=== PATIENT | female | born 1980 | race Caucasian/White ===

== ENCOUNTER 2018-02-05 14:56 | Emergency (ER) | payer SELFPAY ==
[2018-02-05] MEDS ORDERED: HYDROCODONE/APAP 7.5/325 MG TAB ONE (17:10)
--- NOTE | 2018-02-05 18:22 | ER ---
Nurse's Notes [facility] Name: Marlen Rosas Age: 37 yrs Sex: Female : 1980 Arrival Date: 02/05/2018 Time: 14:58 Bed 15 Private MD: None, None Diagnosis: Other fracture of right patella;Sprain of unspecified site of right knee-possible ligamentous injury Presentation: 02/05 15:32 Presenting complaint: Patient states: " I missed the last step on our stairs, fell and ph landed on my knee. I've been icing it and taking prednisone and Motrin but it just keeps swelling and it is really hurting." Swelling noted to R knee. Transition of care: patient was not received from another setting of care. Onset of symptoms was February 05, 2018. Risk Assessment: Do you want to hurt yourself or someone else? Patient reports no desire to harm self or others. Initial Sepsis Screen: Does the patient meet any 2 criteria? No. Patient's initial sepsis screen is negative. Does the patient have a suspected source of infection? No. Patient's initial sepsis screen is negative. Care prior to arrival: None. 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 - Social history:: Smoking status: Patient/guardian denies using tobacco. - Ebola Screening: : No symptoms or risks identified at this time. Screenin:01 Abuse screen: Denies threats or abuse. Nutritional screening: No deficits noted. mb3 Tuberculosis screening: No symptoms or risk factors identified. Fall Risk None identified. Assessment: 19:00 General: Appears in no apparent distress. comfortable, Behavior is calm, cooperative, mb3 appropriate for age. Pain: Complains of pain in right knee. Neuro: No deficits noted. Cardiovascular: No deficits noted. Respiratory: No deficits noted. GI: No deficits noted. No signs and/or symptoms were reported involving the gastrointestinal system. Musculoskeletal: Capillary refill < 3 seconds, Swelling present in right knee Reports pain in right knee. Vital Signs: 15:37 BP 108 / 75; Pulse 90; Resp 18; Temp 98.6; Pulse Ox 98% on R/A; Weight 104.33 kg; ph Height 5 ft. 4 in. (162.56 cm); Pain 7/10; 19:02 BP 130 / 83; Pulse 73; Resp 16; Pulse Ox 98% on R/A; mb3 15:37 Body Mass Index 39.48 (104.33 kg, 162.56 cm) ph ED Course: 14:58 Patient arrived in ED. sb2 14:59 None, None is Private Physician. sb2 15:36 Triage completed. ph 15:37 Arm band placed on Patient placed in waiting room, Patient notified of wait time. X-ray ph ordered. Affected limb iced. 16:56 Preet Grant NP is PHCP. pm1 16:56 Nitin Meehan MD is Attending Physician. pm1 16:57 Pedrito Rodas, DORENE is Primary Nurse. mb3 17:52 Knee Right 3 View XRAY In Process Unspecified. EDMS 18:07 X-ray completed. Portable x-ray completed in exam room. Patient tolerated procedure bb2 well. 18:20 Tobin Choudhary MD is Referral Physician. pm1 19:02 No provider procedures requiring assistance completed. Patient did not have IV access mb3 during this emergency room visit. Crutch training done. Knee immobilizer applied on. 19:02 Knee immobilizer applied on right knee. mb3 Administered Medications: 17:08 Drug: [place] (7.5 mg-325 mg) 1 tabs Route: PO; mb3 18:47 Follow up: Response: No adverse reaction mb3 18:47 Drug: TORadol 60 mg Route: IM; Site: right gluteus; mb3 18:48 Follow up: Response: No adverse reaction mb3 Outcome: 18:21 Discharge ordered by . pm1 19:03 Patient left the ED. mb3 Signatures: Dispatcher [employer] Brittni Perez RN RN Preet Grant NP WASHER AND CRUSHER TENDER pm1 Zakia Oakley bb2 Jenelle Pena sb2 Pedrito Rodas, DORENE RN mb3
--- NOTE | 2018-02-05 18:22 | EDPHYS ---
Physician Documentation [facility] Name: Marlen Rosas Age: 37 yrs Sex: Female : 1980 Arrival Date: 02/05/2018 Time: 14:58 Bed 15 Private MD: None, None ED Physician Nitin Meehan HPI: 02/05 17:45 This 37 yrs old Female presents to ER via Wheelchair with complaints of Right pm1 Knee Injury. 17:45 The patient presents with pain, swelling, tenderness. The complaints affect the right pm1 knee. Context: The problem was sustained at home, resulted from missed last step of bottom step and landed on her right knee, Problem is a result from a previous injury: No. Onset: The symptoms/episode began/occurred just prior to arrival. Modifying factors: The symptoms are alleviated by nothing. the symptoms are aggravated by weight bearing, bending knee. Associated signs and symptoms: Pertinent positives: swelling, Pertinent negatives calf tenderness, numbness, tingling. Treatment prior to arrival includes: no previous treatment. The patient has not experienced similar symptoms in the past. No head injury, headache, neck pain, or LOC. Patient walking down her stairs and missed the last step with her right foot. Feel and landed on her right knee. 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 - Social history:: Smoking status: Patient/guardian denies using tobacco. - Ebola Screening: : No symptoms or risks identified at this time. ROS: 17:45 Constitutional: Negative for fever, chills, and weight loss, Eyes: Negative for injury, pm1 pain, redness, and discharge, ENT: Negative for injury, pain, and discharge, Neck: Negative for injury, pain, and swelling, Cardiovascular: Negative for chest pain, palpitations, and edema, Respiratory: Negative for shortness of breath, cough, wheezing, and pleuritic chest pain, Abdomen/GI: Negative for abdominal pain, nausea, vomiting, diarrhea, and constipation, Back: Negative for injury and pain, : Negative for injury, bleeding, discharge, and swelling. 17:45 Skin: Negative for injury, rash, and discoloration, Neuro: Negative for headache, weakness, numbness, tingling, and seizure. 17:45 MS/extremity: Positive for pain, of the right knee, Negative for decreased range of motion, deformity. Exam: 17:45 Constitutional: This is a well developed, well nourished patient who is awake, alert, pm1 and in no acute distress. Head/Face: Normocephalic, atraumatic. Neck: Trachea midline, no thyromegaly or masses palpated, and no cervical lymphadenopathy. Supple, full range of motion without nuchal rigidity, or vertebral point tenderness. No Meningismus. Chest/axilla: Normal chest wall appearance and motion. Nontender with no deformity. No lesions are appreciated. Cardiovascular: Regular rate and rhythm with a normal S1 and S2. No gallops, murmurs, or rubs. Normal PMI, no JVD. No pulse deficits. Respiratory: Lungs have equal breath sounds bilaterally, clear to auscultation and percussion. No rales, rhonchi or wheezes noted. No increased work of breathing, no retractions or nasal flaring. Abdomen/GI: Soft, non-tender, with normal bowel sounds. No distension or tympany. No guarding or rebound. No evidence of tenderness throughout. Back: No spinal tenderness. No costovertebral tenderness. Full range of motion. Skin: Warm, dry with normal turgor. Normal color with no rashes, no lesions, and no evidence of cellulitis. 17:45 Musculoskeletal/extremity: Extremities: grossly normal except: noted in the posterior aspect of right knee and lateral and medial aspect of right knee just below patella: swelling, tenderness, ROM: full active range of motion, in the , full passive range of motion, in the right knee, Circulation is intact in all extremities. 17:45 Neuro: Orientation: is normal, Motor: is normal, moves all fours, Sensation: Vital Signs: 15:37 BP 108 / 75; Pulse 90; Resp 18; Temp 98.6; Pulse Ox 98% on R/A; Weight 104.33 kg; ph Height 5 ft. 4 in. (162.56 cm); Pain 7/10; 19:02 BP 130 / 83; Pulse 73; Resp 16; Pulse Ox 98% on R/A; mb3 15:37 Body Mass Index 39.48 (104.33 kg, 162.56 cm) ph MDM: 16:57 Patient medically screened. pm1 17:52 Data reviewed: vital signs. Data interpreted: Pulse oximetry: on room air is 98 %. pm1 Interpretation: normal. 18:19 Counseling: I had a detailed discussion with the patient and/or guardian regarding: the pm1 historical points, exam findings, and any diagnostic results supporting the discharge/admit diagnosis, radiology results, the need for outpatient follow up, to return to the emergency department if symptoms worsen or persist or if there are any questions or concerns that arise at home. 02/05 15:38 Order name: Knee Right 3 View XRAY; Complete Time: 18:25 ph 02/05 18:07 Order name: Knee Immobilizer; Complete Time: 18:48 pm1 02/05 18:07 Order name: Crutches; Complete Time: 18:48 pm1 Administered Medications: 17:08 Drug: [place] (7.5 mg-325 mg) 1 tabs Route: PO; mb3 18:47 Follow up: Response: No adverse reaction mb3 18:47 Drug: TORadol 60 mg Route: IM; Site: right gluteus; mb3 18:48 Follow up: Response: No adverse reaction mb3 Disposition: 02/06 07:03 Co-signature as Attending Physician, Nitin Meehan MD. rn Disposition: 02/05/18 18:21 Discharged to Home. Impression: Other fracture of right patella, Sprain of unspecified site of right knee - possible ligamentous injury. - Condition is Stable. - Discharge Instructions: Crutch Use, Knee Immobilizer, Knee Sprain, Knee Fracture, Adult. - Prescriptions for Tylenol- Codeine #3 300-30 mg Oral Tablet - take 2 tablets by ORAL route every 6 hours As needed; 20 tablet. - Medication Reconciliation Form, Thank You Letter, Prescription Opioid Use form. - Follow up: Emergency Department; When: As needed; Reason: Worsening of condition. Follow up: Tobin Choudhary MD; When: 2 - 3 days; Reason: Recheck today's complaints, Continuance of care, Re-evaluation by your physician. - Problem is new. - Symptoms have improved. Signatures: Dispatcher [employer] EDMS Nitin Meehan MD MD rn Hall, Patricia RN RN ph Preet rGant, HOBBIES AND CRAFTS SALES REPRESENTATIVE HOBBIES AND CRAFTS SALES REPRESENTATIVE pm1 Pedrito Rodas RN RN mb3 Corrections: (The following items were deleted from the chart) 02/05 18:30 18:21 02/05/2018 18:21 Discharged to Home. Impression: Pain in right knee - possible pm1 ligamentous injury; Sprain of unspecified site of right knee. Condition is Stable. Forms are Medication Reconciliation Form, Thank You Letter, Antibiotic Education, Prescription Opioid Use. Follow up: Emergency Department; When: As needed; Reason: Worsening of condition. Follow up: Tobin Choudhary; When: 2 - 3 days; Reason: Recheck today's complaints, Continuance of care, Re-evaluation by your physician. Problem is new. Symptoms have improved. pm1 18:32 18:30 02/05/2018 18:21 Discharged to Home. Impression: Other fracture of right patella; pm1 Sprain of unspecified site of right knee. Condition is Stable. Discharge Instructions: Crutch Use, Knee Immobilizer, Knee Sprain, Knee Pain. Prescriptions for Tylenol-Codeine #3 300-30 mg Oral Tablet - take 2 tablets by ORAL route every 6 hours As needed; 20 tablet. and Forms are Medication Reconciliation Form, Thank You Letter, Prescription Opioid Use. Follow up: Emergency Department; When: As needed; Reason: Worsening of condition. Follow up: Tobin Choudhary; When: 2 - 3 days; Reason: Recheck today's complaints, Continuance of care, Re-evaluation by your physician. Problem is new. Symptoms have improved. pm1 18:40 18:32 02/05/2018 18:21 Discharged to Home. Impression: Other fracture of right patella. pm1 Condition is Stable. Discharge Instructions: Crutch Use, Knee Immobilizer, Knee Sprain, Knee Pain. Prescriptions for Tylenol-Codeine #3 300-30 mg Oral Tablet - take 2 tablets by ORAL route every 6 hours As needed; 20 tablet. and Forms are Medication Reconciliation Form, Thank You Letter, Prescription Opioid Use. Follow up: Emergency Department; When: As needed; Reason: Worsening of condition. Follow up: Tobin Choudhary; When: 2 - 3 days; Reason: Recheck today's complaints, Continuance of care, Re-evaluation by your physician. Problem is new. Symptoms have improved. pm1 19:03 18:40 02/05/2018 18:21 Discharged to Home. Impression: Other fracture of right patella; mb3 Sprain of unspecified site of right knee - possible ligamentous injury. Condition is Stable. Discharge Instructions: Crutch Use, Knee Immobilizer, Knee Fracture, Adult. Prescriptions for Tylenol-Codeine #3 300-30 mg Oral Tablet - take 2 tablets by ORAL route every 6 hours As needed; 20 tablet. and Forms are Medication Reconciliation Form, Thank You Letter, Prescription Opioid Use. Follow up: Emergency Department; When: As needed; Reason: Worsening of condition. Follow up: Tobin Choudhary; When: 2 - 3 days; Reason: Recheck today's complaints, Continuance of care, Re-evaluation by your physician. Problem is new. Symptoms have improved. pm1
--- NOTE | 2018-02-05 18:23 | RAD REPORT ---
EXAM DESCRIPTION: RAD - Knee Right 3 View - 02/05/2018 6:01 pm CLINICAL HISTORY: SWELLING Fall COMPARISON: No comparisons FINDINGS: A crescentic bony fragment is noted along the lateral aspect of the patella. The patient h as clinical tenderness in this location, this may represent a fracture. If not, it is probably relate d to bipartite patella, normal variant. A moderate suprapatellar joint effusion is seen.
[2018-02-05] MEDS ORDERED: KETOROLAC 30 MG/ML INJ ONE (18:47)
== END 2018-02-05 19:03 | disposition home or self-care (01) ==
LOC: ER 14:56
PROC: 2W3QXYZ Immobilization of Right Lower Leg using Other Device (ICD-10-PCS; principal; 2018-02-05)
DX: S83.91XA Sprain of unspecified site of right knee, initial encounter (principal); W10.9XXA Fall (on) (from) unspecified stairs and steps, initial encounter; Y93.01 Activity, walking, marching and hiking; Y92.018 Other place in single-family (private) house as the place of occurrence of the external cause; S82.001A Unspecified fracture of right patella, initial encounter for closed fracture; Z88.5 Allergy status to narcotic agent
CPT/HCPCS: 96372; 99283

== ENCOUNTER 2018-05-09 22:50 | Emergency (ER) | payer OTHER, SELFPAY ==
[2018-05-09] MEDS ORDERED: IBUPROFEN 400 MG TAB ONE (23:37)
[2018-05-09] MEDS ORDERED: HYDROCODONE/APAP 5/325 MG TAB ONE (23:37)
--- NOTE | 2018-05-10 00:29 | ER ---
Nurse's Notes [facility] Name: Marlen Rosas Age: 37 yrs Sex: Female : 1980 Arrival Date: 05/09/2018 Time: 22:52 Bed 14 Private MD: Diagnosis: Pain in left knee;Synovial cyst of popliteal space [Dodson], left knee Presentation: 05/09 23:06 Presenting complaint: Patient states: I was here before for my right knee hurting, now jb4 both knees are hurting and it is difficult to walk. Transition of care: patient was not received from another setting of care. Onset of symptoms was May 09, 2018. Risk Assessment: Do you want to hurt yourself or someone else? Patient reports no desire to harm self or others. Initial Sepsis Screen: Does the patient meet any 2 criteria? No. Patient's initial sepsis screen is negative. Does the patient have a suspected source of infection? No. Patient's initial sepsis screen is negative. Care prior to arrival: None. 23:06 Method Of Arrival: Ambulatory jb4 23:06 Acuity: MARBIN 3 jb4 Triage Assessment: 23:11 General: Appears in no apparent distress. uncomfortable, Behavior is calm, cooperative, jb4 appropriate for age. Pain: Complains of pain in right knee and left knee Pain does not radiate. Pain currently is 6 out of 10 on a pain scale. at worst was 9 out of 10 on a pain scale. 23:11 EENT: No signs and/or symptoms were reported regarding the EENT system. Neuro: Level of jb4 Consciousness is awake, alert, obeys commands, Oriented to person, place, time, situation. Cardiovascular: Patient's skin is warm and dry. Respiratory: Airway is patent Respiratory effort is even, unlabored, Respiratory pattern is regular, symmetrical. GI: No signs and/or symptoms were reported involving the gastrointestinal system. : No signs and/or symptoms were reported regarding the genitourinary system. Derm: Skin is intact, Skin is pink, warm \T\ dry. Musculoskeletal: Circulation, motion, and sensation intact. Reports pain in right knee and left knee. 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 - Social history:: Smoking status: Patient uses tobacco products, 10 cigarettes/day. - Ebola Screening: : No symptoms or risks identified at this time. Screenin:06 Abuse screen: Denies threats or abuse. Nutritional screening: No deficits noted. jb4 Tuberculosis screening: No symptoms or risk factors identified. Fall Risk None identified. Assessment: 23:06 General: See triage assessment.. jb4 05/10 00:23 Reassessment: Patient appears in no apparent distress at this time. Patient and/or jb4 family updated on plan of care and expected duration. Pain level reassessed. Patient is alert, oriented x 3, equal unlabored respirations, skin warm/dry/pink. 00:47 Reassessment: Patient appears in no apparent distress at this time. Patient and/or jb4 family updated on plan of care and expected duration. Pain level reassessed. Patient is alert, oriented x 3, equal unlabored respirations, skin warm/dry/pink. Discussed D/c, F/u with pt, denies questions or concerns. Vital Signs: 05/09 23:11 BP 106 / 70; Pulse 79; Resp 18; Temp 98.3; Pulse Ox 100% ; Weight 97.98 kg; Height 5 jb4 ft. 4 in. (162.56 cm); Pain 6/10; 05/10 00:00 BP 115 / 72; Pulse 75; Resp 20; Pulse Ox 100% on R/A; jb4 05/09 23:11 Body Mass Index 37.08 (97.98 kg, 162.56 cm) 4 ED Course: 05/09 22:52 Patient arrived in ED. do 22:58 Jac Granado PA is PHCP. cp 22:58 Nitin Meehan MD is Attending Physician. cp 23:06 Alfred Galloway, DORENE is Primary Nurse. jb4 23:06 Patient has correct armband on for positive identification. Bed in low position. Call [facility] light in reach. Side rails up X 1. Pulse ox on. NIBP on. 23:10 Triage completed. jb4 23:11 Arm band placed on left wrist. jb4 05/10 00:12 XRAY Knee LEFT 3 view In Process Unspecified. EDMS 00:15 Ultrasound completed. Patient tolerated well. aa4 00:16 US Extremity Venous Unilateral Ltd In Process Unspecified. EDMS 00:27 Joaquin Ruby MD is Referral Physician. cp 00:48 No provider procedures requiring assistance completed. Patient did not have IV access jb4 during this emergency room visit. Administered Medications: 05/09 23:33 Drug: HYDROcodone-acetaminophen 5 mg-325 mg 1 tabs Route: PO; jb4 05/10 00:46 Follow up: Response: No adverse reaction; Pain is unchanged, physician notified jb4 00:08 Not Given (PT took prescribed dose before coming to the ED): Ibuprofen 800 mg PO once jb4 00:46 Drug: TORadol 60 mg Route: IM; Site: right gluteus; jb4 00:46 Follow up: Response: No adverse reaction; Pain is decreased jb4 Outcome: 00:28 Discharge ordered by MD. cp 00:48 Discharged to home ambulatory. jb4 00:48 Condition: stable 00:48 Discharge instructions given to patient, Instructed on discharge instructions, follow up and referral plans. medication usage, Demonstrated understanding of instructions, follow-up care, medications, Prescriptions given X 2. 00:49 Patient left the ED. jb4 Signatures: Dispatcher [employer] Miracle Lamar aa4 Jac Granado PA PA cp Ogletree, Danielle do Bryson, James, RN RN jb4
--- NOTE | 2018-05-10 00:29 | EDPHYS ---
Physician Documentation [facility] Name: Marlen Rosas Age: 37 yrs Sex: Female : 1980 Arrival Date: 05/09/2018 Time: 22:52 Bed 14 Private MD: ED Physician Nitin Meehan HPI: 05/09 23:20 This 37 yrs old Female presents to ER via Ambulatory with complaints of Knee cp Pain. 23:20 The patient presents with pain, that is acute. cp 23:20 The complaints affect the left knee. Onset: The symptoms/episode began/occurred cp gradually. Patient denies trauma to left knee and reports increasing pain since injury to right knee. CONVICT GUARD: 23:11 LMP N/A - Hysterectomy jb4 Historical: - Allergies: 23:11 Morphine; jb4 - Home Meds: 23:11 None [Active]; jb4 - PMHx: 23:11 None; jb4 - PSHx: 23:11 ; Carpal Tunnel Repair; R ovary removed; Hysterectomy; jb4 - Immunization history:: Adult Immunizations up to date, Flu vaccine is not up to date. - Social history:: Smoking status: Patient uses tobacco products, 10 cigarettes/day. - Ebola Screening: : No symptoms or risks identified at this time. ROS: 23:25 Constitutional: Negative for body aches, chills, fever, poor PO intake. cp 23:25 Eyes: Negative for injury, pain, redness, and discharge. cp 23:25 Cardiovascular: Negative for chest pain, edema, palpitations. 23:25 Respiratory: Negative for cough, shortness of breath, wheezing. 23:25 Abdomen/GI: Negative for abdominal pain, nausea, vomiting, and diarrhea. 23:25 MS/extremity: Positive for pain, tenderness, of the left knee, Negative for injury or acute deformity, decreased range of motion, paresthesias. 23:25 Skin: Negative for cellulitis, rash. 23:25 All other systems are negative. Exam: 23:30 Constitutional: The patient appears in no acute distress, alert, awake, non-toxic, well cp developed, well nourished. 23:30 Head/Face: Normocephalic, atraumatic. cp 23:30 Eyes: Periorbital structures: appear normal, Conjunctiva: normal, Sclera: no appreciated abnormality, Lids and lashes: appear normal, bilaterally. 23:30 ENT: External ear(s): are unremarkable, Nose: is normal, Mouth: Lips: moist, Oral mucosa: moist, Posterior pharynx: is normal, airway is patent. 23:30 Chest/axilla: Inspection: normal. 23:30 Cardiovascular: Rate: normal, Rhythm: regular. 23:30 Respiratory: the patient does not display signs of respiratory distress, Respirations: normal, no use of accessory muscles, no retractions, no splinting, no tachypnea. 23:30 Musculoskeletal/extremity: ROM: limited passive range of motion due to pain, in the left knee, Perfusion: the extremity is normally perfused throughout, Sensation intact. Joints: All joints are normal except the left knee displays painful range of motion, tenderness. 23:30 Skin: cellulitis, is not appreciated, no rash present. Vital Signs: 23:11 BP 106 / 70; Pulse 79; Resp 18; Temp 98.3; Pulse Ox 100% ; Weight 97.98 kg; Height 5 jb4 ft. 4 in. (162.56 cm); Pain 6/10; 05/10 00:00 BP 115 / 72; Pulse 75; Resp 20; Pulse Ox 100% on R/A; jb4 05/09 23:11 Body Mass Index 37.08 (97.98 kg, 162.56 cm) jb4 MDM: 05/09 22:58 Patient medically screened. cp 05/10 00:00 Differential diagnosis: dislocation, closed fracture, tendonitis, effusion. cp 00:27 Data reviewed: vital signs, nurses notes, radiologic studies, plain films, and as a cp result, I will discharge patient. 00:27 Test interpretation: by ED physician or midlevel provider: plain radiologic studies. cp Counseling: I had a detailed discussion with the patient and/or guardian regarding: the historical points, exam findings, and any diagnostic results supporting the discharge/admit diagnosis, radiology results, the need for outpatient follow up, a orthopedic surgeon, to return to the emergency department if symptoms worsen or persist or if there are any questions or concerns that arise at home. Response to treatment: the patient's symptoms have mildly improved after treatment, and as a result, I will discharge patient. 05/09 23:18 Order name: XRAY Knee LEFT 3 view cp 05/09 23:18 Order name: US Extremity Venous Unilateral Ltd cp 05/10 00:26 Order name: Baldomero wrap-joint; Complete Time: 00:47 cp Administered Medications: 05/09 23:33 Drug: HYDROcodone-acetaminophen 5 mg-325 mg 1 tabs Route: PO; jb4 05/10 00:46 Follow up: Response: No adverse reaction; Pain is unchanged, physician notified jb4 00:08 Not Given (PT took prescribed dose before coming to the ED): Ibuprofen 800 mg PO once jb4 00:46 Drug: TORadol 60 mg Route: IM; Site: right gluteus; jb4 00:46 Follow up: Response: No adverse reaction; Pain is decreased jb4 Disposition: 01:19 Co-signature as Attending Physician, Nitin Meehan MD. rn Disposition: 05/10/18 00:28 Discharged to Home. Impression: Pain in left knee, Synovial cyst of popliteal space [Dodson], left knee. - Condition is Stable. - Discharge Instructions: Elastic Bandage and RICE, Dodson Cyst, Knee Pain. - Prescriptions for Anaprox DS 550 mg Oral Tablet - take 1 tablet by ORAL route every 12 hours As needed; 20 tablet. Tramadol 50 mg Oral Tablet - take 1 tablet by ORAL route every 8 hours as needed; 20 tablet. - Medication Reconciliation Form, Thank You Letter, Antibiotic Education, Prescription Opioid Use form. - Follow up: Joaquin Ruby MD; When: 2 - 3 days; Reason: Recheck today's complaints. - Problem is new. - Symptoms have improved. Signatures: Dispatcher [employer] EDMS Nitin Meehan MD MD rn Krenek, Amber, RN RN ak1 Jac Granado PA PA cp Bryson, James, RN RN jb4 Corrections: (The following items were deleted from the chart) 00:46 00:26 Crutches ordered. cp jb4 00:49 00:28 05/10/2018 00:28 Discharged to Home. Impression: Pain in left knee; Synovial cyst jb4 of popliteal space [Dodson], left knee. Condition is Stable. Forms are Medication Reconciliation Form, Thank You Letter, Antibiotic Education, Prescription Opioid Use. Follow up: Joaquin Ruby; When: 2 - 3 days; Reason: Recheck today's complaints. Problem is new. Symptoms have improved. cp
[2018-05-10] MEDS ORDERED: KETOROLAC 30 MG/ML INJ ONE (00:39)
--- NOTE | 2018-05-10 09:47 | RAD REPORT ---
EXAM DESCRIPTION: US - Extremity Venous Uni Ltd - 05/10/2018 12:36 am CLINICAL HISTORY: Left knee pain Preliminary findings provided at the time of the study. COMPARISON: None. TECHNIQUE: Real-time sonographic evaluation of the left lower extremity deep venous system was perfo rmed. FINDINGS: Normal compressibility, flow augmentation, phasic flow and spontaneous flow are identified in the left lower extremity common femoral, superficial femoral, popliteal and posterior tibial vein s. No intraluminal filling defects seen. In the left popliteal fossa a 4.5 x 3.0 x 1.5 centimeter complex predominantly cystic mass is present . This is typical for a Dodson's cyst with hemorrhagic or cellular debris within the lumen. No free fl uid to indicate acute cyst rupture. IMPRESSION: No DVT in the left lower extremity. A large 4 centimeter popliteal fossa cyst is present. There is intraluminal debris or hemorrhage. No acute rupture findings seen.
--- NOTE | 2018-05-10 11:29 | RAD REPORT ---
EXAM DESCRIPTION: RAD - Knee Left 3 View - 05/10/2018 12:11 am CLINICAL HISTORY: Knee pain, difficulty walking COMPARISON: None. FINDINGS: No fracture, dislocation or periosteal reaction.No joint effusion confirmed. No joint spac e narrowing. Minimal or early spurring changes are seen in the lateral compartment and superior artic ular margin of the patella. No suspicious soft tissue finding. No abnormal calcifications. IMPRESSION: Minimal degenerative spurring changes along the lateral compartment and superior margin of the patella. Clinical concerns for internal derangement or occult bony injury could be further assessed with MR im aging.
== END 2018-05-10 00:49 | disposition home or self-care (01) ==
LOC: ER 22:50
DX: M71.22 Synovial cyst of popliteal space [Baker], left knee (principal); F17.210 Nicotine dependence, cigarettes, uncomplicated; Z88.5 Allergy status to narcotic agent
CPT/HCPCS: 93971; 96372; 99284

== ENCOUNTER 2018-10-08 14:49 | Emergency (ER) | payer OTHER, SELFPAY ==
--- NOTE | 2018-10-08 15:27 | ER ---
Nurse's Notes [facility] Name: Marlen Paz Age: 37 yrs Sex: Female : 1980 Arrival Date: 10/08/2018 Time: 14:52 Bed 28 Private MD: Diagnosis: Nontraumatic hematoma of soft tissue Presentation: 10/08 15:08 Presenting complaint: Patient states: "I noticed a lump on the bottom of my foot 3 ss weeks ago. I looked up blood clots and plantar fasciitis and it sounded to me more like plantar fasciitis. Well, today I felt a burning and itching all of a sudden and when I looked down it has like moved and is bruised and red now and it has me worried because it moved.". Transition of care: patient was not received from another setting of care. Onset of symptoms was September 17, 2018. Risk Assessment: Do you want to hurt yourself or someone else? Patient reports no desire to harm self or others. Initial Sepsis Screen: Does the patient meet any 2 criteria? No. Patient's initial sepsis screen is negative. Does the patient have a suspected source of infection? No. Patient's initial sepsis screen is negative. Care prior to arrival: None. 15:08 Method Of Arrival: Ambulatory ss 15:08 Acuity: MARBIN 4 ss Historical: - Allergies: 15:12 Codeine; ss 15:39 Morphine; rv - Home Meds: 15:12 Hydrochlorothiazide Oral [Active]; ss - PMHx: 15:12 Hypertension; ss - PSHx: 15:12 ; Carpal Tunnel Repair; ss - Immunization history:: Adult Immunizations up to date. - Social history:: Smoking status: Patient/guardian denies using tobacco, the patient reports quitting approximately 1 years ago. - Ebola Screening: : Patient denies exposure to infectious person Patient denies travel to an Ebola-affected area in the 21 days before illness onset. Screenin:13 Abuse screen: Denies threats or abuse. Denies injuries from another. Nutritional rv screening: No deficits noted. Tuberculosis screening: No symptoms or risk factors identified. Fall Risk None identified. Assessment: 15:10 General: Appears in no apparent distress. uncomfortable, Behavior is calm, cooperative. rv Pain: Complains of pain in arch of left foot Pain currently is 1 out of 10 on a pain scale. at worst was 8 out of 10 on a pain scale. Aggravated by weight bearing. Neuro: Level of Consciousness is awake, alert, obeys commands, Oriented to person, place, time, situation. Cardiovascular: Capillary refill < 3 seconds. Respiratory: Airway is patent. GI: No signs and/or symptoms were reported involving the gastrointestinal system. : No signs and/or symptoms were reported regarding the genitourinary system. EENT: No signs and/or symptoms were reported regarding the EENT system. Derm: Skin is intact, Abscess located on arch of left foot is dime sized, Reports burning, pain that is 1 out of 10 on a pain scale. tingling. Musculoskeletal: Reports pain in left foot. Vital Signs: 15:12 BP 116 / 76; Pulse 82; Resp 16; Temp 98.4(O); Pulse Ox 97% on R/A; Weight 99.79 kg; ss Height 5 ft. 4 in. (162.56 cm); Pain 1/10; 15:13 BP 116 / 76 RA; Pulse 82; Resp 18 S; Pulse Ox 100% on R/A; rv 15:12 Body Mass Index 37.76 (99.79 kg, 162.56 cm) ED Course: 14:52 Patient arrived in ED. mr 15:11 Triage completed. ss 15:12 Arm band placed on right wrist. 15:14 Preet Grant NP is PHCP. pm1 15:14 Nahun Yeager MD is Attending Physician. pm1 15:14 Patient has correct armband on for positive identification. Bed in low position. Call rv light in reach. Side rails up X 1. Adult w/ patient. Pulse ox on. NIBP on. 15:37 No provider procedures requiring assistance completed. Patient did not have IV access rv during this emergency room visit. Administered Medications: No medications were administered Outcome: 15:27 Discharge ordered by . pm1 15:38 Discharged to home ambulatory. rv 15:38 Condition: good 15:38 Discharge instructions given to patient, Instructed on discharge instructions, follow up and referral plans. Demonstrated understanding of instructions, follow-up care. 15:39 Patient left the ED. rv Signatures: Alba Madrid Shelby, RN RN Preet Grant NP GAGE DESIGNER pm1 Artemio, Julito, RN RN rv
--- NOTE | 2018-10-08 15:27 | EDPHYS ---
Physician Documentation [facility] Name: Marlen Paz Age: 37 yrs Sex: Female : 1980 Arrival Date: 10/08/2018 Time: 14:52 Bed 28 Private MD: ED Physician Nahun Yeager HPI: 10/08 15:24 This 37 yrs old Female presents to ER via Ambulatory with complaints of Left pm1 Foot Pain. 15:24 The patient presents with pain. The complaints affect the medial aspect of left foot. pm1 Context: The problem was sustained at home, resulted from an unknown cause, the patient can fully bear weight, the patient is able to ambulate, Problem is a result from a previous injury: No. Onset: The symptoms/episode began/occurred today. Modifying factors: The symptoms are alleviated by nothing. the symptoms are aggravated by weight bearing. Associated signs and symptoms: Pertinent negatives calf tenderness, fever, numbness, swelling, tingling, vomiting, warmth, weakness. Treatment prior to arrival includes: no previous treatment. Severity of symptoms: in the emergency department the symptoms are unchanged. The patient has not experienced similar symptoms in the past. The patient has not recently seen a physician. Patient with itching sensation and pain to medial aspect of left foot that got larger to the size of a nickel over a one hour period. denies trauma or injury. Historical: - Allergies: 15:12 Codeine; ss 15:39 Morphine; rv - Home Meds: 15:12 Hydrochlorothiazide Oral [Active]; ss - PMHx: 15:12 Hypertension; ss - PSHx: 15:12 ; Carpal Tunnel Repair; ss - Immunization history:: Adult Immunizations up to date. - Social history:: Smoking status: Patient/guardian denies using tobacco, the patient reports quitting approximately 1 years ago. - Ebola Screening: : Patient denies exposure to infectious person Patient denies travel to an Ebola-affected area in the 21 days before illness onset. ROS: 15:24 Constitutional: Negative for fever, chills, and weight loss, Eyes: Negative for injury, pm1 pain, redness, and discharge, ENT: Negative for injury, pain, and discharge, Neck: Negative for injury, pain, and swelling, Cardiovascular: Negative for chest pain, palpitations, and edema, Respiratory: Negative for shortness of breath, cough, wheezing, and pleuritic chest pain, Abdomen/GI: Negative for abdominal pain, nausea, vomiting, diarrhea, and constipation, Back: Negative for injury and pain, : Negative for injury, bleeding, discharge, and swelling, MS/Extremity: Negative for injury and deformity. 15:24 Neuro: Negative for headache, weakness, numbness, tingling, and seizure. 15:24 Skin: Positive for ecchymosis, of the medial aspect of left foot, Negative for abscesses, cellulitis. Exam: 15:24 Constitutional: This is a well developed, well nourished patient who is awake, alert, pm1 and in no acute distress. Head/Face: Normocephalic, atraumatic. Neck: Trachea midline, no thyromegaly or masses palpated, and no cervical lymphadenopathy. Supple, full range of motion without nuchal rigidity, or vertebral point tenderness. No Meningismus. Chest/axilla: Normal chest wall appearance and motion. Nontender with no deformity. No lesions are appreciated. Cardiovascular: Regular rate and rhythm with a normal S1 and S2. No gallops, murmurs, or rubs. Normal PMI, no JVD. No pulse deficits. Respiratory: Lungs have equal breath sounds bilaterally, clear to auscultation and percussion. No rales, rhonchi or wheezes noted. No increased work of breathing, no retractions or nasal flaring. Abdomen/GI: Soft, non-tender, with normal bowel sounds. No distension or tympany. No guarding or rebound. No evidence of tenderness throughout. Back: No spinal tenderness. No costovertebral tenderness. Full range of motion. 15:24 MS/ Extremity: Pulses equal, no cyanosis. Neurovascular intact. Full, normal range of motion. 15:24 Skin: Appearance: normal except for affected area, ecchymosis, noted on the, medial aspect of left foot, that are mild, abscess, not appreciated, cellulitis, is not appreciated. 15:24 Neuro: Orientation: is normal, Motor: is normal, moves all fours, Sensation: is normal, no obvious gross deficits. Vital Signs: 15:12 BP 116 / 76; Pulse 82; Resp 16; Temp 98.4(O); Pulse Ox 97% on R/A; Weight 99.79 kg; ss Height 5 ft. 4 in. (162.56 cm); Pain 1/10; 15:13 BP 116 / 76 RA; Pulse 82; Resp 18 S; Pulse Ox 100% on R/A; rv 15:12 Body Mass Index 37.76 (99.79 kg, 162.56 cm) MDM: 15:14 Patient medically screened. pm1 15:24 Data reviewed: vital signs. Data interpreted: Pulse oximetry: on room air is 100 %. pm1 Interpretation: normal. Counseling: I had a detailed discussion with the patient and/or guardian regarding: the historical points, exam findings, and any diagnostic results supporting the discharge/admit diagnosis. Administered Medications: No medications were administered Disposition: 10/09 07:19 Co-signature as Attending Physician, Nahun Yeager MD I agree with the assessment and kdr plan of care. Disposition: 10/08/18 15:27 Discharged to Home. Impression: Nontraumatic hematoma of soft tissue. - Condition is Stable. - Discharge Instructions: Hematoma. - Medication Reconciliation Form, Thank You Letter, Antibiotic Education, Prescription Opioid Use form. - Follow up: Emergency Department; When: As needed; Reason: Worsening of condition. Follow up: Private Physician; When: 2 - 3 days; Reason: Recheck today's complaints, Continuance of care, Re-evaluation by your physician. - Problem is new. - Symptoms have improved. Signatures: Nahun Yeager MD MD [facility] Stephany Estrada RN RN Preet Grant, ANKUR EDUCATIONAL ASSISTANT TEACHER pm1 Julito Ulloa RN RN rv Corrections: (The following items were deleted from the chart) 10/08 15:39 15:27 10/08/2018 15:27 Discharged to Home. Impression: Nontraumatic hematoma of soft rv tissue. Condition is Stable. Forms are Medication Reconciliation Form, Thank You Letter, Antibiotic Education, Prescription Opioid Use. Follow up: Emergency Department; When: As needed; Reason: Worsening of condition. Follow up: Private Physician; When: 2 - 3 days; Reason: Recheck today's complaints, Continuance of care, Re-evaluation by your physician. Problem is new. Symptoms have improved. pm1
== END 2018-10-08 15:39 | disposition home or self-care (01) ==
LOC: ER 14:49
DX: S90.32XA Contusion of left foot, initial encounter (principal); I10 Essential (primary) hypertension; Z88.5 Allergy status to narcotic agent; Z87.891 Personal history of nicotine dependence
CPT/HCPCS: 99283

== ENCOUNTER 2018-11-08 18:15 | Emergency (ER) | payer SELFPAY ==
[2018-11-08 19:38] LABS: Absolute Lymphocytes (CBC) 1.7 K/uL (0.7-4.9); Absolute Monocytes 0.4 K/uL (0.1-1.3); Absolute Neutrophil 8.1 K/uL (1.8-8.0); Basophils % 0.4 % (0-1.3); Eosinophils % 1.6 % (0-4.4); Hematocrit 36.1 % (36.0-45.0); Lymphocytes % 16.2 % (15.3-44.8); MPV 8.2 fL (7.6-11.3); Monocytes % 3.7 % (3.3-12.3); RBC Red Blood Cell Count 4.43 M/uL (3.86-4.86)
[2018-11-08] MEDS ORDERED: FENTANYL CITR 100 MCG/2 ML ONE (19:51)
[2018-11-08 19:55] LABS: ALT/SGPT 24 U/L (12-78); AST/SGOT 20 U/L (15-37); Albumin 3.3 g/dL (3.4-5.0); Alkaline Phosphatase 93 U/L (45-117); BUN Blood Urea Nitrogen 10 mg/dL (7-18); Bicarbonate 23 mmol/L (21-32); Bilirubin Direct < 0.1 mg/dL (0-0.2); Bilirubin Total 0.2 mg/dL (0.2-1.0); Glucose Level 107 mg/dL (74-106); Protein, Total 7.6 g/dL (6.4-8.2); Sodium Level 138 mmol/L (136-145)
[2018-11-08 20:38] LABS: Urine Blood NEGATIVE (NEG); Urine Glucose NEGATIVE (NEG); Urine Protein TRACE (NEG); Urine Specific Gravity >1.030 (1.005-1.030); Urine pH 5.5 (5.0-7.0)
--- NOTE | 2018-11-08 21:00 | RAD REPORT ---
EXAM DESCRIPTION: CT - Abdomen Pelvis W Contrast - 11/08/2018 8:40 pm CLINICAL HISTORY: Abdominal pain . COMPARISON: none. TECHNIQUE: Computed axial tomography of the abdomen pelvis was obtained. 100 cc Isovue-300 was admin istered intravenously. Oral contrast was not requested which limits evaluation of bowel. All CT scans are performed using dose optimization technique as appropriate and may include automated exposure control or mA/KV adjustment according to patient size. FINDINGS: The liver, spleen, pancreas, adrenal and kidneys appear unremarkable. There is no evidence of diverticulitis. An adnexal mass is not seen Tiny umbilical hernia IMPRESSION: No acute abnormality is displayed.
--- NOTE | 2018-11-08 21:28 | EDPHYS ---
Physician Documentation [facility] Name: Marlen Paz Age: 37 yrs Sex: Female : 1980 Arrival Date: 11/08/2018 Time: 18:17 Bed 5 Private MD: None, None ED Physician Jac Moncada HPI: 11/08 20:54 This 37 yrs old Female presents to ER via Ambulatory with complaints of jr8 Rectal Bleeding. 20:54 The patient presents to the emergency department with bleeding from the rectum/anus, jr8 that is moderate, pain in the rectal area, that is mild. Onset: The symptoms/episode began/occurred acutely, today. Context: the patient has no known special context relating to the rectal area complaint(s). Modifying factors: The symptoms are alleviated by nothing, The symptoms are aggravated by bowel movement. Associate signs and symptoms: The patient has no apparent associated signs or symptoms. The patient has not experienced similar symptoms in the past. The patient has not recently seen a physician. Patient stated that she has been dealing with constipation for the past several months. Stated that for the past couple of days has had a hard time utilizing the bathroom. Stated that today she noticed blood coming from rectal region. Stated that she had done a fleets today after straining and noting that she had blood. Stated that after the fleet she had more bleeding. Came to ED that time . Historical: - Allergies: 18:26 Codeine; sv 18:26 Morphine; sv - Home Meds: 20:33 Hydrochlorothiazide Oral [Active]; tl2 - PMHx: 18:26 Hypertension; sv - PSHx: 18:26 ; Carpal Tunnel Repair; sv - Immunization history:: Adult Immunizations up to date. - Social history:: Smoking status: Patient uses tobacco products. - Ebola Screening: : No symptoms or risks identified at this time. ROS: 20:54 Eyes: Negative for injury, pain, redness, and discharge, ENT: Negative for injury, jr8 pain, and discharge, Neck: Negative for injury, pain, and swelling, Cardiovascular: Negative for chest pain, palpitations, and edema, Respiratory: Negative for shortness of breath, cough, wheezing, and pleuritic chest pain, Back: Negative for injury and pain, MS/Extremity: Negative for injury and deformity, Skin: Negative for injury, rash, and discoloration, Neuro: Negative for headache, weakness, numbness, tingling, and seizure. 20:54 Abdomen/GI: Positive for constipation, rectal pain, rectal bleeding, Negative for abdominal pain, nausea, vomiting, and diarrhea, abdominal distension, anorexia, dysphagia, hematemesis, black/tarry stool, bowel incontinence, flatulence. Exam: 20:54 Eyes: Pupils equal round and reactive to light, extra-ocular motions intact. Lids and jr8 lashes normal. Conjunctiva and sclera are non-icteric and not injected. Cornea within normal limits. Periorbital areas with no swelling, redness, or edema. ENT: Nares patent. No nasal discharge, no septal abnormalities noted. Tympanic membranes are normal and external auditory canals are clear. Oropharynx with no redness, swelling, or masses, exudates, or evidence of obstruction, uvula midline. Mucous membranes moist. Neck: Trachea midline, no thyromegaly or masses palpated, and no cervical lymphadenopathy. Supple, full range of motion without nuchal rigidity, or vertebral point tenderness. No Meningismus. Cardiovascular: Regular rate and rhythm with a normal S1 and S2. No gallops, murmurs, or rubs. Normal PMI, no JVD. No pulse deficits. Respiratory: Lungs have equal breath sounds bilaterally, clear to auscultation and percussion. No rales, rhonchi or wheezes noted. No increased work of breathing, no retractions or nasal flaring. Back: No spinal tenderness. No costovertebral tenderness. Full range of motion. Skin: Warm, dry with normal turgor. Normal color with no rashes, no lesions, and no evidence of cellulitis. MS/ Extremity: Pulses equal, no cyanosis. Neurovascular intact. Full, normal range of motion. Neuro: Awake and alert, GCS 15, oriented to person, place, time, and situation. Cranial nerves II-XII grossly intact. Motor strength 5/5 in all extremities. Sensory grossly intact. Cerebellar exam normal. Normal gait. 20:54 Abdomen/GI: Inspection: obese Bowel sounds: active, all quadrants, Palpation: soft, in all quadrants, mild abdominal tenderness, in the left lower quadrant, mass, is not appreciated, rebound tenderness, is not appreciated, voluntary guarding, is not appreciated, involuntary guarding, is not appreciated, no appreciated organomegaly, Rectal exam: rectal tone normal, Stool: brown, guaiac positive, hemorrhoid(s), external, without bleeding, without inflammation, without thrombosis, without pain, mass, is not appreciated, swelling, is not appreciated, tenderness, that is moderate, fecal impaction, is not appreciated, the exam is chaperoned by the nurse, Indicators: McBurney's point is not tender, Brooks's sign is negative, Liver: no appreciated palpable abnormalities. Vital Signs: 18:26 BP 143 / 97; Pulse 110; Resp 24; Pulse Ox 100% ; Weight 99.79 kg; Height 5 ft. 3 in. sv (160.02 cm); Pain 10/10; 19:35 BP 111 / 65; Pulse 83; Resp 18; Pulse Ox 100% on R/A; tl2 21:45 BP 104 / 59; Pulse 74; Resp 18; Pulse Ox 98% on R/A; tl2 18:26 Body Mass Index 38.97 (99.79 kg, 160.02 cm) sv MDM: 18:41 Patient medically screened. jr8 21:25 Data reviewed: vital signs, nurses notes, lab test result(s), radiologic studies, CT jr8 scan. Data interpreted: Pulse oximetry: on room air is 100 %. Interpretation: normal. 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 ED course: CT negative for acute findings. Labs without concerning findings. Rectal exam without acute blood or dark tarry stool. VS stable. Recommended GI f/u at this point. Does not meet criteria for admission and is stable for out patient f/u. Nothing else to do as far as an emergency standpoint. Will help with constipation. If worse knows to come back . 11/08 18:42 Order name: CBC with Diff; Complete Time: 20:04 jr8 11/08 18:42 Order name: Basic Metabolic Panel; Complete Time: 20:04 jr8 11/08 18:42 Order name: LFT's; Complete Time: 20:04 jr8 11/08 18:42 Order name: T\T\S; Complete Time: 20:19 8 11/08 20:30 Order name: Urine Dipstick--Ancillary (enter results); Complete Time: 20:54 2 11/08 20:30 Order name: Urine --Ancillary (enter results); Complete Time: 20:54 mw2 11/08 18:42 Order name: IV; Complete Time: 19:32 8 11/08 20:04 Order name: CT Abd/Pelvis - W/Contrast; Complete Time: 21:03 [facility] Administered Medications: 19:43 Drug: fentaNYL (PF) 50 mcg Route: IVP; Site: right antecubital; tl2 20:10 Follow up: Response: No adverse reaction; Pain is decreased tl2 Point of Care Testing: Guaiac: 19:27 Stool Guaiac: Positive; Stool Hemoccult Control: Pass; mw2 Disposition: 11/09 07:21 Co-signature as Attending Physician, aJc Moncada MD I agree with the assessment and yaritza plan of care. Disposition: 11/08/18 21:27 Discharged to Home. Impression: Rectal bleeding, Gastrointestinal hemorrhage, unspecified, Constipation. - Condition is Stable. - Discharge Instructions: Constipation, Adult, Gastrointestinal Bleeding, Rectal Bleeding. - Prescriptions for Miralax 17 gram/dose Oral - take 1 packet by ORAL route once daily dilute powder in 8 ounces of water or juice; 1 box. - Medication Reconciliation Form, Thank You Letter, Antibiotic Education, Prescription Opioid Use form. - Follow up: Reese Henderson MD; When: 2 - 3 days; Reason: Recheck today's complaints, Continuance of care, Re-evaluation by your physician. - Problem is new. - Symptoms have improved. Signatures: Dispatcher [employer] Zehra Ryder RN RN sv Anderson, Corey, MD MD cha Roszak, Josh, PA PA jr8 Greta De Jesus RN RN tl2 Corrections: (The following items were deleted from the chart) 11/08 22:18 21:27 11/08/2018 21:27 Discharged to Home. Impression: Rectal bleeding; tl2 Gastrointestinal hemorrhage, unspecified; Constipation. Condition is Stable. Forms are Medication Reconciliation Form, Thank You Letter, Antibiotic Education, Prescription Opioid Use. Follow up: Reese Henderson; When: 2 - 3 days; Reason: Recheck today's complaints, Continuance of care, Re-evaluation by your physician. Problem is new. Symptoms have improved. jr8
--- NOTE | 2018-11-08 21:28 | ER ---
Nurse's Notes [facility] Name: Marlen Paz Age: 37 yrs Sex: Female : 1980 Arrival Date: 11/08/2018 Time: 18:17 Bed 5 Private MD: None, None Diagnosis: Rectal bleeding;Gastrointestinal hemorrhage, unspecified;Constipation Presentation: 11/08 18:24 Presenting complaint: Patient states: "I've had constipation issues for a long time and sv I felt like I was constipated today, so I went to the toilet and felt down there and looked at my fingers and there was blood everywhere. I sat on the toilet and blood just started coming out. I'm only bleeding if I sit on the toilet though." c/o anal pain. Transition of care: patient was not received from another setting of care. Onset of symptoms was November 08, 2018. Care prior to arrival: None. 18:24 Method Of Arrival: Ambulatory sv 18:24 Acuity: MARBIN 2 sv 19:10 Risk Assessment: Do you want to hurt yourself or someone else? Patient reports no tl2 desire to harm self or others. Initial Sepsis Screen: Does the patient meet any 2 criteria? No. Patient's initial sepsis screen is negative. Does the patient have a suspected source of infection? No. Patient's initial sepsis screen is negative. Triage Assessment: 18:24 General: Appears uncomfortable, obese, well developed, Behavior is cooperative, crying. sv Pain: Complains of pain in anus Pain currently is 10 out of 10 on a pain scale. Neuro: Level of Consciousness is awake, alert, obeys commands, Oriented to person, place, time, situation, Moves all extremities. Full function Gait is steady. Respiratory: Respiratory effort is even, unlabored, Respiratory pattern is regular, symmetrical. GI: Reports constipation, bloody stool. Derm: Skin is. Historical: - Allergies: 18:26 Codeine; sv 18:26 Morphine; sv - Home Meds: 20:33 Hydrochlorothiazide Oral [Active]; tl2 - PMHx: 18:26 Hypertension; sv - PSHx: 18:26 ; Carpal Tunnel Repair; sv - Immunization history:: Adult Immunizations up to date. - Social history:: Smoking status: Patient uses tobacco products. - Ebola Screening: : No symptoms or risks identified at this time. Screenin:31 Abuse screen: Denies threats or abuse. Nutritional screening: No deficits noted. tl2 Tuberculosis screening: No symptoms or risk factors identified. Fall Risk None identified. Assessment: 19:10 General: Appears in no apparent distress. uncomfortable, Behavior is calm, cooperative, tl2 appropriate for age. Pain: Complains of pain in anus. Neuro: Level of Consciousness is awake, alert, obeys commands, Oriented to person, place, time, situation. Respiratory: Airway is patent Respiratory effort is even, unlabored, Respiratory pattern is regular, symmetrical. GI: Reports rectal bleeding, hemorrhoids, Patient currently denies diarrhea, vomiting. : No signs and/or symptoms were reported regarding the genitourinary system. Derm: Skin is pink, warm \\T\\ dry. 20:31 Reassessment: UPT neg. CT notified. tl2 21:45 Reassessment: Patient appears in no apparent distress at this time. Patient and/or tl2 family updated on plan of care and expected duration. Pain level reassessed. Patient is alert, oriented x 3, equal unlabored respirations, skin warm/dry/pink. pt verbalized understanding of discharge instructions, need for follow up and prescription usage. Will discharge after family arrives. 22:18 Reassessment: pt ambulatory out of ER with family. tl2 Vital Signs: 18:26 BP 143 / 97; Pulse 110; Resp 24; Pulse Ox 100% ; Weight 99.79 kg; Height 5 ft. 3 in. sv (160.02 cm); Pain 10/10; 19:35 BP 111 / 65; Pulse 83; Resp 18; Pulse Ox 100% on R/A; tl2 21:45 BP 104 / 59; Pulse 74; Resp 18; Pulse Ox 98% on R/A; tl2 18:26 Body Mass Index 38.97 (99.79 kg, 160.02 cm) sv ED Course: 18:17 Patient arrived in ED. mr 18:18 None, None is Private Physician. mr 18:26 Triage completed. sv 18:26 Arm band placed on. sv 18:41 Homero Bond PA is PHCP. jr8 18:41 Jac Moncada MD is Attending Physician. jr8 19:32 CBC with Diff Sent. tl2 19:32 Basic Metabolic Panel Sent. tl2 19:32 LFT's Sent. tl2 19:32 T\\T\\S Sent. tl2 19:35 Greta De Jesus RN is Primary Nurse. tl2 19:35 Inserted saline lock: 20 gauge in right antecubital area, using aseptic technique. tl2 Blood collected. 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 tl2 20:09 Radiology exam delayed due to test not completed at this time. kw1 20:31 Patient has correct armband on for positive identification. Bed in low position. Call tl2 light in reach. Side rails up X 1. 20:[address] via wheelchair. eh 20:39 CT completed. Patient tolerated procedure well. 20:40 CT Abd/Pelvis - W/Contrast In Process Unspecified. EDMS 20:43 Patient moved back from CT. 21:26 Reese Henderson MD is Referral Physician. jr8 21:45 IV discontinued, intact, bleeding controlled, No redness/swelling at site. Pressure tl2 dressing applied. Administered Medications: 19:43 Drug: fentaNYL (PF) 50 mcg Route: IVP; Site: right antecubital; tl2 20:10 Follow up: Response: No adverse reaction; Pain is decreased tl2 Point of Care Testing: Guaiac: 19:27 Stool Guaiac: Positive; Stool Hemoccult Control: Pass; mw2 Outcome: 21:27 Discharge ordered by . jr8 21:45 Discharged to home ambulatory, with family. tl2 21:45 Condition: stable 21:45 Discharge instructions given to patient, Instructed on discharge instructions, follow up and referral plans. medication usage, Demonstrated understanding of instructions, follow-up care, medications, Prescriptions given X 1. 22:18 Patient left the ED. tl2 Signatures: Dispatcher [employer] EDIN Zehra Cornell RN RN Julius, Sanya Gonzalez Homero Bond PA PA jr8 Greta De Jesus RN RN tl2 Regina Haney kw1 Cassandra Dejesus mw2 Corrections: (The following items were deleted from the chart) 18:32 18:24 Acuity: MARBIN 3 sv sv
== END 2018-11-08 22:18 | disposition home or self-care (01) ==
LOC: ER 18:15
DX: K92.2 Gastrointestinal hemorrhage, unspecified (principal); K59.00 Constipation, unspecified; I10 Essential (primary) hypertension; Z88.5 Allergy status to narcotic agent; Z72.0 Tobacco use
CPT/HCPCS: 36415; 74177; 80048; 80076; 81003; 81025; 85025; 86850; 86900; 86901; 96374; 99284; J3010; Q9967

== ENCOUNTER 2019-02-21 11:30 | Emergency (ER) | payer SELFPAY ==
--- NOTE | 2019-02-21 11:58 | EDPHYS ---
Physician Documentation [facility] Name: Marlen Zuniga Age: 38 yrs Sex: Female : 1980 Arrival Date: 02/21/2019 Time: 11:33 Bed 5 Private MD: ED Physician Nitin Meehan HPI: 02/21 11:51 This 38 yrs old Female presents to ER via Ambulatory with complaints of rn Abscess. 11:51 The patient presents with an abscess of the abdomen. Description: The affected area is rn small, localized, draining, erythematous, fluctuant, swollen. 11:53 Onset: The symptoms/episode began/occurred 4 day(s) ago. Possible cause(s): unknown. rn Modifying factors: the symptoms are alleviated by squeezing the lesion and expressing the contents, the symptoms are aggravated by squeezing the lesion and expressing the contents. Severity of symptoms: At their worst the symptoms were moderate, in the emergency department the symptoms are unchanged. The patient has experienced similar episodes in the past. Reports hx of abscesses, has had drainages and drains placed, reports this one on abdominal wall and begn 4 days ago. No fever. popped it today and has been draining with heat. No chills. . 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 - Social history:: Smoking status: Patient/guardian denies using tobacco. - Family history:: not pertinent. - Ebola Screening: : No symptoms or risks identified at this time. - Hospitalizations: : No recent hospitalization is reported. ROS: 11:53 Constitutional: Negative for fever, chills, and weight loss, Skin: + abscess and rn swollen area to left lower abdominal wall Exam: 11:53 Constitutional: This is a well developed, well nourished patient who is awake, alert, rn and in no acute distress. Abdomen/GI: Soft, non-tender, non-distended Skin: Warm, dry. 3cm area of fluctuance with central hole, + able to express out approx 4-5cc of purulence, squeezed in all borders of swollen area with significant decrease in size and tenderness, no fluctuance at end of procedure. Vital Signs: 11:35 BP 108 / 52; Pulse 72; Resp 18; Temp 98.8(O); Pulse Ox 98% on R/A; Weight 99.79 kg; hj Height 5 ft. 3 in. (160.02 cm); Pain 9/10; 11:35 Body Mass Index 38.97 (99.79 kg, 160.02 cm) MDM: 11:42 Patient medically screened. rn 11:53 Differential diagnosis: abscess, cellulitis. Data reviewed: vital signs, nurses notes, rn and as a result, I will discharge patient. ED course: Offered I\T\D, patient declines states feels better now that I squeezed out most of pus, wants to go home and try soaking and squeezing at home, has had multiple abscesses in past and comfortable with doing it at home. Return precautions given and understood. . Administered Medications: No medications were administered Disposition: 02/21/19 11:57 Discharged to Home. Impression: Cutaneous abscess of abdominal wall. - Condition is Stable. - Discharge Instructions: Skin Abscess. - Prescriptions for Zofran ODT 4 mg Oral tablet,disintegrating - place 1 tablet by TRANSLINGUAL route every 8 hours As needed; 20 tablet. Clindamycin HCl 300 mg Oral Capsule - take 1 capsule by ORAL route every 6 hours for 10 days; 40 capsule. Tylenol- Codeine #3 300-30 mg Oral Tablet - take 2 tablet by ORAL route every 6 hours As needed; 30 tablet. Bactrim DS 800- 160 mg Oral Tablet - take 1 tablet by ORAL route every 12 hours for 10 days; 20 tablet. - Medication Reconciliation Form, Thank You Letter, Antibiotic Education, Prescription Opioid Use form. - Follow up: Private Physician; When: 2 - 3 days; Reason: Wound Recheck, Recheck today's complaints, Re-evaluation by your physician. - Problem is new. - Symptoms have improved. Signatures: Miracle Kerns RN RN aj Nieto, Roman, MD MD rn Joaquin, Henry, RN RN hj Corrections: (The following items were deleted from the chart) 12:05 11:57 02/21/2019 11:57 Discharged to Home. Impression: Cutaneous abscess of abdominal aj wall. Condition is Stable. Forms are Medication Reconciliation Form, Thank You Letter, Antibiotic Education, Prescription Opioid Use. Follow up: Private Physician; When: 2 - 3 days; Reason: Wound Recheck, Recheck today's complaints, Re-evaluation by your physician. Problem is new. Symptoms have improved. rn
--- NOTE | 2019-02-21 11:58 | ER ---
Nurse's Notes [facility] Name: Marlen Zuniga Age: 38 yrs Sex: Female : 1980 Arrival Date: 02/21/2019 Time: 11:33 Bed 5 Private MD: Diagnosis: Cutaneous abscess of abdominal wall Presentation: 02/21 11:33 Presenting complaint: Patient states: i have a boil on the L lower abd since 4 days hj ago, its getting harder; it tried busting it last night but i guess it aggravated it; denies fever and chills;. Transition of care: patient was not received from another setting of care. Onset of symptoms was February 21, 2019. Risk Assessment: Do you want to hurt yourself or someone else? Patient reports no desire to harm self or others. Initial Sepsis Screen: Does the patient meet any 2 criteria? No. Patient's initial sepsis screen is negative. Does the patient have a suspected source of infection? No. Patient's initial sepsis screen is negative. Care prior to arrival: None. 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 - Social history:: Smoking status: Patient/guardian denies using tobacco. - Family history:: not pertinent. - Ebola Screening: : No symptoms or risks identified at this time. - Hospitalizations: : No recent hospitalization is reported. Screenin:51 Abuse screen: Denies threats or abuse. Denies injuries from another. Nutritional aj screening: No deficits noted. Tuberculosis screening: No symptoms or risk factors identified. Fall Risk None identified. Assessment: 11:51 General: Appears in no apparent distress. comfortable, Behavior is calm, cooperative, aj appropriate for age. Pain: Complains of pain in left lower quadrant. Neuro: Level of Consciousness is awake, alert, obeys commands, Oriented to person, place, time, situation, Appropriate for age. Respiratory: Airway is patent Respiratory effort is even, unlabored, Respiratory pattern is regular, symmetrical. Derm: Abscess located on left lower quadrant is dime sized, has purulent drainage, is red, was lanced by patient prior to arrival. 12:04 Reassessment: Patient appears in no apparent distress at this time. No changes from aj previously documented assessment. Patient and/or family updated on plan of care and expected duration. Pain level reassessed. Patient is alert, oriented x 3, equal unlabored respirations, skin warm/dry/pink. Patient states feeling better. Patient states symptoms have improved. Vital Signs: 11:35 BP 108 / 52; Pulse 72; Resp 18; Temp 98.8(O); Pulse Ox 98% on R/A; Weight 99.79 kg; hj Height 5 ft. 3 in. (160.02 cm); Pain 9/10; 11:35 Body Mass Index 38.97 (99.79 kg, 160.02 cm) hj ED Course: 11:33 Patient arrived in ED. hj 11:35 Triage completed. hj 11:35 Arm band placed on. hj 11:41 Miracle Kerns RN is Primary Nurse. aj 11:42 Nitin Meehan MD is Attending Physician. rn 11:51 Patient has correct armband on for positive identification. Placed in gown. Bed in low aj position. 11:51 Assist provider with I \T\ D: of an abscess on left lower abdomen Performed by Nitin Meehan MD Dressing with 4X4s, Patient tolerated well. Patient did not have IV access during this emergency room visit. Administered Medications: No medications were administered Outcome: 11:57 Discharge ordered by . rn 12:04 Discharged to home ambulatory. aj 12:04 Condition: good 12:04 Discharge instructions given to patient, Instructed on discharge instructions, follow up and referral plans. medication usage, Demonstrated understanding of instructions, follow-up care, medications, Prescriptions given X 4. 12:05 Patient left the ED. aj Signatures: Miracle Kerns RN RN aj Nieto, Roman, MD MD rn Joaquin, Henry, RN RN hj Corrections: (The following items were deleted from the chart) 11:37 11:35 Pulse 72bpm; Resp 18bpm; Pulse Ox 98% RA; Temp 98.8F Oral; 99.79 kg; Height 5 ft. hj 3 in.; BMI: 38.9; Pain 9/10; hj
== END 2019-02-21 12:05 | disposition home or self-care (01) ==
LOC: ER 11:30
DX: L02.211 Cutaneous abscess of abdominal wall (principal); I10 Essential (primary) hypertension; Z88.5 Allergy status to narcotic agent
CPT/HCPCS: 99283